=== PATIENT | female | born 1950 | race Caucasian/White ===

== ENCOUNTER → 2016-03-20 | Day surgery (SDC) | payer OTHER ==
[~2016-03-20] VITALS: Ht 154.9 cm; Wt 56.7 kg
[~2016-03-20] MED LIST: BUPIVACAINE/EPIN 0.25% 30 ML VIAL As Ordered ONE; CALC500T21 PO; LABETALOL HCL 100 MG/20 ML VIAL As Ordered ONE; LATA5OPD OU; LIDOCAINE 2% INJ 100 MG/5 ML SDV (FOR ANES.) As Ordered ONE; LIDOCAINE W/EPINEPHRINE 1% 20ML VIAL As Ordered ONE; LIDOCAINE W/EPINEPHRINE 1% 20ML VIAL SC ONE; LISI10TA4 PO; LR 1,000 ML IV SCH; MIDAZOLAM INJ 2 MG/2 ML VIAL (J2250) As Ordered ONE; NORCO, ANEXSIA 5/325MG TABLET (HYDROcodone/ACETAMINOPHEN) PO PRN; ONDANSETRON 4MG/2ML VIAL (J2405) As Ordered ONE; PERCOCET 5MG/325MG TAB PO PRN; PROPOFOL 200 MG/20 ML VIAL As Ordered ONE; VITA-115 PO; VITA500T3 PO; fentaNYL 100 MCG/2 ML INJECTION (J3010) As Ordered ONE; fentaNYL 100 MCG/2 ML INJECTION (J3010) IV PRN
[2016-03-20 11:56] VITALS: BP 139/78
--- NOTE | 2016-03-20 14:07 | RO ---
DATE OF PROCEDURE: 03/20/2016 PREOPERATIVE DIAGNOSIS: Left thigh basal cell carcinoma. POSTOPERATIVE DIAGNOSIS: Left thigh basal cell carcinoma. PROCEDURE: Excision of left thigh basal cell carcinoma with undermining. SURGEON: Dr. Khoi Geiger SENIOR ADMINISTRATIVE ASSOCIATE: None. ANESTHESIA: General. ESTIMATED BLOOD LOSS (EBL): 10. COMPLICATIONS: None. INDICATIONS FOR PROCEDURE: The patient is a 65-year-old female, who presents with a lesion on the left thigh about 3.5 cm in diameter that has been present for a couple of years. She thought that it started off as a bug bite, and it just would not go away. It was biopsied in my office. It came back as basal cell carcinoma. Therefore, recommendation was to bring her to the operating room for excision. Risks and benefits of the procedure not limited but including bleeding, infection, and need for repeat excision were discussed in detail with the patient. Informed consent was obtained, and the procedure was planned. DESCRIPTION OF PROCEDURE: The patient was brought back to operating room #3 after sufficient sedation. The left thigh was sterilely prepped and draped with Betadine. Next, time-out was done to confirm proper patient and proper procedure. Following that, a #15 blade scalpel was used to make 5.5 x 12 cm elliptical incision encompassing this left thigh wound. Following that, the electrocautery was used to completely excise this ellipse of skin, including the lesion. Once this was completed, electrocautery was used to undermine the skin in all directions for about 4 or 5 cm to create large skin flaps to be able to close the defect. Once the skin flaps had been created, 2-0 nylon interrupted sutures were used to reapproximate the 12 cm incision. Once this was completed, the area was cleaned and dried with saline, covered with 4 x 4s and tape, thus ending the procedure.
--- NOTE | 2016-03-21 08:26 | ECGEPIP ---
Stationary ECG Study [facility] Test Date: 2016-03-20 Pat Name: NADEGE DEL ROSARIO Department: Room: - Gender: F Rack Carrier: : 1950 Requested By: WOJCIECH Lima Order Number: [id number] Reading MD: Mikey Porter Measurements Intervals [place] Rate: 82 P: 67 WV: 140 QRS: 19 QRSD: 88 T: 53 QT: 359 QTc: 421 Interpretive Statements Normal sinus rhythm Anteroseptal SC, age indeterminate Nonspecific ST-T wave abnormalities Comparison tracing not on file Electronically Signed On 03-21-2016 8:26:21 EST by Mikey Porter
== END | disposition home or self-care (01) ==
LOC: M SDC 06:45
PROVIDERS: ATTEND Surgery
DX: C44.719 Basal cell carcinoma of skin of left lower limb, including hip (principal); I10 Essential (primary) hypertension; E78.00 Pure hypercholesterolemia, unspecified; Z79.899 Other long term (current) drug therapy
CPT/HCPCS: 11606; 88307; 93005; J0690; J2250; J2405; J3010

== ENCOUNTER → 2016-06-18 | Outpatient (REF) | payer MEDICARE ==
[~2016-06-18] MED LIST changes: -BUPIVACAINE/EPIN 0.25% 30 ML VIAL As Ordered ONE; -LABETALOL HCL 100 MG/20 ML VIAL As Ordered ONE; -LIDOCAINE 2% INJ 100 MG/5 ML SDV (FOR ANES.) As Ordered ONE; -LIDOCAINE W/EPINEPHRINE 1% 20ML VIAL As Ordered ONE; -LIDOCAINE W/EPINEPHRINE 1% 20ML VIAL SC ONE; -LR 1,000 ML IV SCH; -MIDAZOLAM INJ 2 MG/2 ML VIAL (J2250) As Ordered ONE; -NORCO, ANEXSIA 5/325MG TABLET (HYDROcodone/ACETAMINOPHEN) PO PRN; -ONDANSETRON 4MG/2ML VIAL (J2405) As Ordered ONE; -PERCOCET 5MG/325MG TAB PO PRN; -PROPOFOL 200 MG/20 ML VIAL As Ordered ONE; -fentaNYL 100 MCG/2 ML INJECTION (J3010) As Ordered ONE; -fentaNYL 100 MCG/2 ML INJECTION (J3010) IV PRN
== END ==
LOC: M SFHCCLAY 07:11
PROVIDERS: ATTEND Nurse Practitioner Family
DX: E78.4 Other hyperlipidemia (principal); E55.9 Vitamin D deficiency, unspecified

== ENCOUNTER → 2016-10-02 | Outpatient (REF) | payer MEDICARE ==
[2016-10-02 18:02] LABS: ALBUMIN 4.1 GM/DL (3.2-5.2); ALBUMIN/GLOBULIN RATIO 1.32 (1.00-1.93); ALKALINE PHOSPHATASE 57 U/L (45-117); ALT/SGPT 19 U/L (12-78); ANION GAP 8 MEQ/L (8-16); AST/SGOT 10 U/L (15-37); BILIRUBIN,TOTAL 0.4 MG/DL (0.2-1.0); BLOOD UREA NITROGEN 14 MG/DL (7-18); CARBON DIOXIDE LEVEL 27 MEQ/L (21-32); CHLORIDE LEVEL 106 MEQ/L (98-107); CHOLESTEROL LEVEL 217 MG/DL (<200); CREATININE FOR GFR 0.82 MG/DL (0.55-1.02); GLOMERULAR FILTRATION RATE > 60.0 (>45); GLUCOSE, FASTING 97 MG/DL (80-110); POTASSIUM SERUM 4.3 MEQ/L (3.5-5.1); SODIUM LEVEL 141 MEQ/L (136-145); TOTAL PROTEIN 7.2 GM/DL (6.4-8.2); TRIGLYCERIDES LEVEL 143 MG/DL (<150)
== END ==
LOC: M SFHCCLAY 09:02
PROVIDERS: ATTEND Nurse Practitioner Family
DX: E55.9 Vitamin D deficiency, unspecified (principal); Z13.1 Encounter for screening for diabetes mellitus; Z13.6 Encounter for screening for cardiovascular disorders; Z23 Encounter for immunization; Z79.899 Other long term (current) drug therapy
CPT/HCPCS: 80053; 80061; 81002; 82306; 87086; 90670; 93005; G0009; G0402

== ENCOUNTER → 2017-03-13 | Outpatient (REF) | payer MEDICARE ==
[2017-03-13 19:40] LABS: TOTAL 25(OH) VITAMIN D 26.9 NG/ML (30.0-100.0)
[2017-03-13 19:41] LABS: CHOLESTEROL LEVEL 233 MG/DL (<200); CHOLESTEROL RISK RATIO 2.478 (<5); HDL CHOLESTEROL 94 MG/DL (>40); NON-HDL-C 139 MG/DL; TRIGLYCERIDES LEVEL 105 MG/DL (<150)
== END ==
LOC: M SFHCCLAY 09:03
DX: E78.4 Other hyperlipidemia (principal); E55.9 Vitamin D deficiency, unspecified
CPT/HCPCS: 82306